=== PATIENT | male | born 1960 | race Caucasian/White ===

== ENCOUNTER 2025-05-26 10:19 | Outpatient (CLI) | payer MEDICARE, MEDICAID ==
[~2025-05-26 10:19] MED LIST: IBUP-1984 PO
--- NOTE | 2025-05-26 14:46 | RADIOLOGY REPORT ---
CLINICAL INDICATION: Other symptoms and signs with cognitive functions and awareness. COMPARISON: None TECHNIQUE: Multisequence multiplanar MRI images of the brain were obtained without contrast. FINDINGS: No acute infarct or hemorrhage. No mass or midline shift. Scattered moderate to marked are as of T2/FLAIR hyperintense signal in the periventricular and subcortical white matter are nonspecifi c, but most likely sequelae of chronic small vessel ischemic disease, with more confluent FLAIR hyper intense signal in the left frontal lobe, possible superimposed chronic infarct. Atrophic changes with dilation of the ventricles and widening of the sulci. Basal cisterns are patent.Cerebellum, brainste m, and midline structures are within normal limits. Mild mucosal thickening of the paranasal sinuses. Orbits are grossly unremarkable. IMPRESSION: 1. No evidence of acute intracranial abnormality. 2. Findings consistent with chronic small-vessel ischemic disease and possible superimposed chronic l eft frontal lobe infarct. 3. Additional findings as detailed above.
== END 2025-05-26 23:59 | disposition home or self-care (01) ==
LOC: MRI02 10:19
PROVIDERS: ATTEND Family Medicine
DX: R41.89 Other symptoms and signs involving cognitive functions and awareness (principal)
CPT/HCPCS: 70551